=== PATIENT | female | born 1990 | race Hispanic/Latino ===

== ENCOUNTER → 2022-04-30 | Outpatient (CLI) | payer MEDICAID ==
[~2022-04-30] MED LIST: ACET-2079 PO; CEPH500C2 PO
== END | disposition home or self-care (01) ==
LOC: RAH 11:28
PROVIDERS: ATTEND Urology
DX: N20.0 Calculus of kidney (principal)
CPT/HCPCS: 74018; 76100

== ENCOUNTER → 2022-05-21 | Outpatient (CLI) | payer MEDICAID | END | disposition home or self-care (01) | LOC: RAH 16:08 | PROVIDERS: ATTEND Urology | DX: N20.2 Calculus of kidney with calculus of ureter (principal) | CPT/HCPCS: 76100 ==

== ENCOUNTER → 2022-06-11 | Outpatient (CLI) | payer MEDICAID | END | disposition home or self-care (01) | LOC: RAH 11:03 | PROVIDERS: ATTEND Urology | DX: N20.2 Calculus of kidney with calculus of ureter (principal); M47.815 Spondylosis without myelopathy or radiculopathy, thoracolumbar region; Z93.6 Other artificial openings of urinary tract status; Z96.0 Presence of urogenital implants | CPT/HCPCS: 74018; 76100 ==

== ENCOUNTER → 2022-07-10 | Outpatient (CLI) | payer MEDICAID | END | disposition home or self-care (01) | LOC: RAH 08:07 | PROVIDERS: ATTEND Urology | DX: N20.2 Calculus of kidney with calculus of ureter (principal); M47.816 Spondylosis without myelopathy or radiculopathy, lumbar region | CPT/HCPCS: 74018; 76100 ==